=== PATIENT | female | born 1995 | race African-American/Black ===

== ENCOUNTER 2017-12-31 00:39 | Observation (INO) | payer MEDICAID ==
[2017-12-31] MEDS ORDERED: PREN27TA7 PO (09:46)
== END 2017-12-31 02:17 | disposition home or self-care (01) | DRG 566 ==
LOC: LDRP 00:39
PROVIDERS: ADMIT Obstetrics & Gynecology; ATTEND Obstetrics & Gynecology
DX: O62.9 Abnormality of forces of labor, unspecified (principal); O48.0 Post-term pregnancy; Z3A.40 40 weeks gestation of pregnancy
CPT/HCPCS: 59025; 81002; G0378

== ENCOUNTER 2017-12-31 05:37 | Inpatient (IN) | payer MEDICAID ==
[~2017-12-31] VITALS: Ht 157.5 cm; Wt 79.8 kg
[2017-12-31] VITALS (8 sets, daily range): BP systolic 110–136; BP diastolic 58–75
[2017-12-31] MEDS: LACTATED RINGER'S 1,000 ML IV SCH ×2 (06:45→14:45)
[2017-12-31] MEDS ORDERED: PHISODERM TOP SOLN 240ML BTL TOP PRN (06:45)
[2017-12-31] MEDS ORDERED: WITCH HAZEL-GLYCERIN PAD TOP PRN (06:45)
[2017-12-31] MEDS ORDERED: METHYLERGONOVINE MALEATE 0.2 MG/ML AMP IM PRN (06:45)
[2017-12-31] MEDS ORDERED: DERMOPLAST 60ML BOTTLE TOP PRN (06:45)
[2017-12-31] MEDS ORDERED: LACT. RINGERS/OXYTOCIN 20UNITS 1,000 ML IV SCH ×2 (06:45→10:10)
[2017-12-31] MEDS ORDERED: LIDOCAINE 2%HCL (LOCAL ANESTH.) INJ 20ML MDV IJ ONE (06:45)
[2017-12-31] MEDS ORDERED: NALBUPHINE HCL 10 MG/1ml INJECTION IV PRN (06:45)
[2017-12-31 07:31] LABS: Basophils # (auto) 0.1 uL; Basophils % (auto) 1.2 % (0.0-2.0); Eosinophils # (auto) 0 uL; Eosinophils % (auto) 0.2 % (0.0-7.0); Hematocrit 38.5 % (36.0-46.0); Hemoglobin 13.2 g/dL (12.2-16.2); Lymphocytes % (auto) 9.3 % (10.0-50.0); Mean Corpuscular Hemoglobin 28.9 pg (28.0-32.0); Mean Corpuscular Hgb Conc. 34.2 g/dL (32.0-36.0); Mean Corpuscular Volume 84.6 fL (80.0-100.0); Monocytes # (auto) 0.6 uL; Monocytes % (auto) 5.3 % (0.0-12.0); Neutrophils # (auto) 9.2 uL; Nucleated Red Blood Cells % 0.1 %; Platelet Count (auto) 252 10^3/uL (140-450); Red Blood Cells 4.55 10^6/uL (4.0-5.20); Red Cell Distribution Width 13.6 % (11.8-14.3)
[2017-12-31 07:49] LABS: Albumin 2.8 g/dL (3.4-5.0); BUN/Creatinine Ratio 6.8; Calcium 9.4 mg/dL (8.5-10.1); Potassium 3.5 mmol/L (3.5-5.1)
[2017-12-31 07:49] LABS: Urine Bacteria FEW /hpf (None Seen); Urine Blood Negative /uL (Negative); Urine Mucus FEW (None Seen); Urine Specific Gravity 1.011 (1.001-1.035); Urine WBC 1 /hpf (0 - 5)
[2017-12-31 07:51] LABS: Bilirubin, Total 0.4 mg/dL (0.2-1.0); Total Protein 7.4 g/dL (6.4-8.2)
[2017-12-31] MEDS ORDERED: PROMETHAZINE HCL 25 MG/ML 1ML IV PRN (08:30)
[2017-12-31 08:34] LABS: INR 0.9 (0.9-1.15); Partial Thromboplastin Time 31.7 sec (22.64-33.71); Prothrombin Time 9.8 sec (9.37-12.3)
[2017-12-31] MEDS ORDERED: PREN27TA7 PO (09:46)
[2017-12-31] MEDS ORDERED: TERBUTALINE SULFATE 1 MG/ML 1ML VIAL SC ONE (10:15)
[2017-12-31] MEDS ORDERED: LIDOCAINE HCL 2 %PF INJ 10ML AMP IJ ONE (10:15)
[2017-12-31] MEDS ORDERED: ePHEDrine SULFATE 50 MG/ML AMP IV ONE ×2 (10:15→12:00)
[2017-12-31] MEDS ORDERED: fentaNYL W ROPIVACAINE 150 ML EPI SCH ×2 (10:15→12:00)
[2017-12-31] MEDS ORDERED: NALOXONE HCL 0.4 MG/ML VIAL IV ONE ×2 (10:15→12:00)
[2017-12-31] MEDS ORDERED: fentaNYL CITRATE 100 MCG/2 ML VL IV ONE (10:15)
[2017-12-31] MEDS ORDERED: SODIUM CHLORIDE 0.9% 500 ML IV PRN (11:56)
[2017-12-31] MEDS ORDERED: IBUPROFEN 600 MG TAB PO ONE (19:45)
[2017-12-31] MEDS ORDERED: IBUPROFEN 600 MG TAB PO PRN (19:45)
[2017-12-31] MEDS: ceFAZolin 1GM/50ML 50 ML IV SCH (23:10)
[2017-12-31] MEDS: ACETAMINOPHEN 325 MG TAB PO PRN (23:20)
[2018-01-01 03:30] VITALS: BP 107/66
[2018-01-01] MEDS: LACTATED RINGER'S 1,000 ML IV SCH (04:07)
[2018-01-01] MEDS ORDERED: IBUPROFEN 600 MG TAB PO PRN (05:45)
[2018-01-01] MEDS: ACETAMINOPHEN 325 MG TAB PO PRN ×2 (05:46→20:42)
[2018-01-01] MEDS: ceFAZolin 1GM/50ML 50 ML IV SCH ×2 (05:47→14:21)
[2018-01-01 06:54] VITALS: BP 116/58
[2018-01-01 11:00] VITALS: BP 118/63
[2018-01-01 15:11] VITALS: BP 118/75
[2018-01-01] MEDS: IBUPROFEN 600 MG TAB PO PRN ×2 (16:50→22:38)
[2018-01-01 19:00] VITALS: BP 125/69
[2018-01-01 23:00] VITALS: BP 116/73
[2018-01-02 03:00] VITALS: BP 115/62
[2018-01-02] MEDS: IBUPROFEN 600 MG TAB PO PRN (04:10)
[2018-01-02 07:04] VITALS: BP 119/66
== END 2018-01-02 10:45 | disposition home or self-care (01) | DRG 560 ==
LOC: LDRP 05:37 → OBSVTOIN 06:56 → LDRP 06:57
PROVIDERS: ADMIT Obstetrics & Gynecology; ATTEND Obstetrics & Gynecology
PROC: 10E0XZZ Delivery of Products of Conception, External Approach (ICD-10-PCS; principal; 2017-12-31)
PROC: 10907ZC Drainage of Amniotic Fluid, Therapeutic from Products of Conception, Via Natural or Artificial Opening (ICD-10-PCS; 2017-12-31)
PROC: 3E0R3BZ Introduction of Anesthetic Agent into Spinal Canal, Percutaneous Approach (ICD-10-PCS; 2017-12-31)
PROC: 00HU33Z Insertion of Infusion Device into Spinal Canal, Percutaneous Approach (ICD-10-PCS; 2017-12-31)
PROC: 0UQMXZZ Repair Vulva, External Approach (ICD-10-PCS; 2017-12-31)
PROC: 0UQGXZZ Repair Vagina, External Approach (ICD-10-PCS; 2017-12-31)
DX: O77.0 Labor and delivery complicated by meconium in amniotic fluid (principal); O71.4 Obstetric high vaginal laceration alone; Z3A.40 40 weeks gestation of pregnancy; O71.82 Other specified trauma to perineum and vulva; Z37.0 Single live birth; O42.92 Full-term premature rupture of membranes, unspecified as to length of time between rupture and onset of labor
CPT/HCPCS: 36415; 51702; 59025; 59409; 62282; 80053; 81001; 81002; 85025; 85610; 85730; 86850; 86900; 86901; 94762; 96365; 96366; 96374; 96375; G0378; J0690; J2590; J3010